=== PATIENT | male | born 1975 | race Two or more races ===

== ENCOUNTER 2019-02-17 12:33 | Emergency (ER) | payer OTHER ==
[2019-02-17 12:47] VITALS: BP 158/93; PULSE 85; TEMP 98.1; BMI 40.6
[2019-02-17] MEDS ORDERED: DIPHTH,PERTUSS(ACELL),TET 0.5 ML DISP.SYRIN IM ONE ×2 (12:50→13:08)
--- NOTE | 2019-02-17 12:51 | PDOC ---
Rapid Medical Evaluation Chief Complaint: Laceration Time Seen by Provider: 02/17/19 12:48 Medical Evaluation: Allergies Allergy/AdvReac Type Severity Reaction Status Date / Time No Known Allergies Allergy Verified 02/17/19 12:47 Vital Signs Temp Pulse Resp BP Pulse Ox 98.1 F 85 18 158/93 100 02/17/19 12:43 02/17/19 12:43 02/17/19 12:43 02/17/19 12:43 02/17/19 12:43 02/17/19 12:48 The patient is a 43 y/o M who presents to the ER for a laceration to the L 2nd digit after getting caught in a metal worker. Does not know last tetanus. Exam: 3cm laceration to the L lateral 2nd digit. No active bleeding. Pt able to flex and extend the finger Orders: Boostrix, x-ray Pt to proceed to the ED for further evaluation Discharge Disposition - Diagnosis Laceration - Referrals - Patient Instructions - Post Discharge Activity
--- NOTE | 2019-02-17 13:32 | PDOC ---
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 a doorjamb and is sick or piece of metal caused a finish grinder to garcia back and causing finish grinder to incur laceration to the radial aspect of left index finger Timing/Duration: reports: just prior to arrival, other Severity: Yes: mild, moderate Location: reports: extremities, hands Past History - Travel Traveled outside of the country in the last 30 days: No Close contact w/someone who was outside of country & ill: No - Past Medical History Allergies/Adverse Reactions: Allergies Allergy/AdvReac Type Severity Reaction Status Date / Time No Known Allergies Allergy Verified 02/17/19 12:47 Home Medications: Ambulatory Orders Acetaminophen [Tylenol] 325 mg PO ASDIR 02/17/19 Cephalexin Monohydrate [Keflex -] 500 mg PO Q8H #15 capsule 02/17/19 Ibuprofen [Motrin -] 400 mg PO ASDIR 02/17/19 Metformin HCl [Metformin HCl ER] 500 mg PO BID 02/17/19 COPD: No Dialysis: Yes - Suicide/Smoking/Psychosocial Hx Smoking History: Unknown if ever smoked Review of Systems - Review of Systems Able to Perform ROS?: Yes Is the patient limited Yakut proficient: Yes Constitutional: Yes: Symptoms Reported, See HPI HEENTM: No: Symptoms Reported Respiratory: No: Symptoms reported, See HPI Musculoskeletal: Yes: Symptoms Reported, See HPI, Joint Pain Integumentary: Yes: Symptoms Reported, See HPI, Other All Other Systems: Reviewed and Negative *Physical Exam - Vital Signs Last Vital Signs Temp Pulse Resp BP Pulse Ox 98.1 F 85 18 158/93 100 02/17/19 12:43 02/17/19 12:43 02/17/19 12:43 02/17/19 12:43 02/17/19 12:43 - Physical Exam General Appearance: Yes: Nourished, Appropriately Dressed, Apparent Distress, Mild Distress HEENT: positive: ARNOL, Normal ENT Inspection, TMs Normal, Pharynx Normal Musculoskeletal: positive: Normal Inspection Extremity: positive: Normal Capillary Refill, Other Integumentary: positive: Normal Color, Other (patient with 3 cm laceration that runs on the radial aspect of his left index finger starting at distal phalanx and extending past PIP. No structures noted, able to flex and extend against resistance. No nail involvement) Neurologic: positive: medical lab technologist II-XII NML intact, Fully Oriented, Alert, Normal Mood/ Affect, Normal Response, Motor Strength 5/5 Procedures - Laceration/Wound Repair Left Medial Finger Wound Length: 2.6 to 5.0 cm Wound Explored: contaminated Wound's Depth, Shape: superficial, linear Irrigated w/ Saline: Yes Betadine Prep: Yes Wound Debrided: minimal Wound Repaired With: Sutures Suture Size/Type: 5:0, nylon Number of Sutures: 10 Layer Closure: No Sterile Dressing Applied: Yes Splint Applied: Yes (finger splint) ED Treatment Course - Medications Given in the ED: ED Medications Discontinued Medications Generic Name Dose Route Start Last Admin Trade Name Freq PRN Reason Stop Dose Admin Diphtheria/Tetanus/Acell Pertussis 0.5 ml 02/17/19 12:50 02/17/19 13:10 Boostrix - IM 02/17/19 12:51 0.5 ml .ONCE ONE Administration Progress Note - Progress Note Progress Note: Finger laceration repaired, no bone involvement. X-ray negative for fracture. Tetanus/diphtheria/pertussis booster was updated today. STarted on Keflex, 500 mg tablet this patient is diabetic with a crush injury, *DC/Admit/Observation/Transfer Diagnosis at time of Disposition: Laceration - Discharge Dispostion Disposition: HOME Condition at time of disposition: Stable Decision to Admit order: No - Prescriptions Prescriptions: Cephalexin Monohydrate [Keflex -] 500 mg PO Q8H #15 capsule - Referrals - Patient Instructions Printed Discharge Instructions: DI for Laceration Repair Additional Instructions: Rest, elevate, avoid strenuous activity or heavy lifting until sutures are removed Leave dressing on for the next 24 hours, Then may remove dressing gently and wash area with soap and water. Reapply bacitracin ointment and dressing daily for the next 5 days On day #6 keep the wound protected and cover as needed until sutures are removed allowing wound to start to dry May use Tylenol or Motrin for pain relief Suture removal in : 12-14 Days - Post Discharge Activity Forms/Work/School Notes: Back to Work
[2019-02-17] MEDS ORDERED: CEPHALEXIN MONOHYDRATE 500 MG CAPSULE (UD) PO ONE (13:37)
[2019-02-17] MEDS ORDERED: CEPHALEXIN MONOHYDRATE 500 MG CAPSULE (UD) ONE (13:41)
[2019-02-17] MEDS ORDERED: IBUPROFEN 600 MG TABLET (FP) PO ONE ×2 (14:09→14:13)
== END 2019-02-17 14:20 | disposition home or self-care (01) ==
LOC: JERFT 12:33
PROC: 0JQK0ZZ Repair Left Hand Subcutaneous Tissue and Fascia, Open Approach (ICD-10-PCS; principal; 2019-02-17)
PROC: 3E0234Z Introduction of Serum, Toxoid and Vaccine into Muscle, Percutaneous Approach (ICD-10-PCS; 2019-02-17)
PROC: 2W3KX1Z Immobilization of Left Finger using Splint (ICD-10-PCS; 2019-02-17)
DX: S61.211A Laceration without foreign body of left index finger without damage to nail, initial encounter (principal); W31.89XA Contact with other specified machinery, initial encounter; Y93.89 Activity, other specified; Y92.69 Other specified industrial and construction area as the place of occurrence of the external cause; Y99.0 Civilian activity done for income or pay
CPT/HCPCS: 73130-TC-LT-FY; 90715; 99282-25